=== PATIENT | male | born 1950 | race Caucasian/White ===

== ENCOUNTER → 2020-09-06 10:59 | Outpatient (CLI) | payer MEDICARE, OTHER, SELFPAY ==
--- NOTE | 2020-09-06 11:03 | DI.MRI.S_ITS ---
PROCEDURE: MR KNEE RT WO CON INDICATIONS: Pain in right knee TECHNIQUE: Noncontrast sagittal PD fast spin echo and T2 fast spin echo with fat saturation, sagittal 3-D FLASH with fat saturation; coronal T1 spin echo and PD fast spin echo with fat saturation, and axial PD fast spin echo with fat saturation through the knee. COMPARISON: [facility], MR, MR KNEE RIGHT WITHOUT CONTRAST, 12/14/2016, 10:20. [facility] [place], CR, XR KNEE 4+ VIEWS RIGHT, 08/28/2020, 15:08. FINDINGS: Image quality: There is mild motion artifact. Menisci: There is blunting in the posterior horn of the medial meniscus suggestive of prior partial meniscectomy. There is degenerative signal within the remnant posterior horn and body with mild degenerative tearing extending to the free edge and inferior articular surface. There is also partial tearing of the posterior meniscal root ligament without rupture. There is slight peripheral extrusion of the medial meniscus. The lateral meniscus appears intact. Cruciate ligaments: The anterior cruciate ligament is thickened and intermediate in signal consistent with chronic myxoid degeneration or sequelae of a moderate sprain. The posterior cruciate ligament is intact. Medial structures: The medial collateral ligament appears intact. The semimembranosus tendon insertions and meniscocapsular junction appear intact. Visualized portions of the pes anserinus tendons appear intact without associated bursal fluid collections. Lateral structures: The lateral collateral ligament, long and short heads of the biceps femoris tendon appear intact. The popliteus tendon demonstrates mild tendinopathy proximally. Iliotibial band appears normal. Anterior structures: The quadriceps tendon appears intact. There is mild tendinopathy and mild intrasubstance partial tearing in the proximal patellar tendon. Patellar alignment is normal. No femoral trochlear dysplasia or ventral trochlear prominence. There is mild scarring in the infrapatellar fat pad. Bones and cartilage: There is a small region of bone marrow edema anteriorly within the proximal tibia adjacent to the insertion of the ACL. No fractures identified. There is tricompartmental osteophytosis. Moderate cartilage thinning is present within the medial compartment with chondral fissuring and associated subchondral edema along the medial femoral condyle and medial tibial plateau. In the lateral compartment, there is mild cartilage thinning with superficial chondral fissuring. There is osteophytosis along the articular surface of the lateral femoral condyle. In the patellofemoral compartment, there is moderate cartilage thinning with chondral fissuring associated with subchondral edema most prominent along the lateral trochlea. Joint space: There is a minimal joint effusion. No Brown's cyst. Normal appearing synovial plicae are incidentally noted. IMPRESSION: 1. Blunting of the posterior horn of the medial meniscus suggestive of prior partial meniscectomy. Mild degenerative tearing is demonstrated within the remnant posterior horn and body as described. Partial tearing also demonstrated in the posterior meniscal root ligament without rupture. 2. Tricompartmental osteoarthritic changes, with chondral fissuring and subchondral edema demonstrated in the medial and patellofemoral compartments. 3. Thickening and intermediate signal demonstrated within the ACL consistent with sequelae of a moderate sprain or chronic myxoid degeneration. 4. Small region of bone marrow edema in the anterior tibia adjacent to the ACL insertion suggestive of intraosseous ganglion cyst formation, reactive changes, or a bone contusion. No fractures identified. Dictated by: Epifanio Haji M.D. on 09/08/2020 at 11:14 Approved by: Epifanio Haji M.D. on 09/08/2020 at 11:38
== END ==
PROVIDERS: PCP Physician Assistant Medical; Referring Provider Orthopaedic Surgery; Visit Provider Orthopaedic Surgery
DX: M25.561 Pain in right knee (principal); M23.221 Derangement of posterior horn of medial meniscus due to old tear or injury, right knee
CPT/HCPCS: 73721

== ENCOUNTER → 2020-10-24 10:19 | Outpatient (CLI) | payer MEDICARE, OTHER, SELFPAY ==
[2020-10-24 10:29] LABS: Bacteria Urine None Seen; WBC Urine None Seen (0-5/HPF)
[2020-10-24 12:09] LABS: Appearance Urine UA CLEAR; Bilirubin Urine UA NEGATIVE (NEGATIVE); Color Urine UA YELLOW; Glucose Urine UA NEGATIVE (Negative); Ketones Urine UA NEGATIVE (NEGATIVE); Leukocyte Esterase Urine UA NEGATIVE (NEGATIVE); Nitrite Urine UA NEGATIVE (Negative); Occult Blood Urine UA 1+ (Negative); Protein Urine UA NEGATIVE (Negative); Urobilinogen Urine UA 0.2 E.U./dL (0.2); pH Urine UA 5.5 (4.5-8.0)
[2020-10-24 12:12] LABS: Add Manual Diff / Slide Review NO; Basophils Absolute Auto 0 /uL (0-100); Basophils Percent Auto 0.8 % (0-2); Eosinophils Absolute Auto 300 /uL (0-450); Eosinophils Percent Auto 5.9 % (2-4); Hematocrit 44.9 % (41-53); Lymphocytes Absolute Auto 1400 /uL (1100-4500); Mean Corpuscular HGB Conc 33.4 % (30-36); Mean Corpuscular Hemoglobin 30.4 PG (26-34); Mean Corpuscular Volume 91.2 fL (80-100); Monocytes Absolute Auto 600 /uL (0-900); Monocytes Percent Auto 11.6 % (3-14); Neutrophils Absolute Auto 2900 /uL (1500-7000); Neutrophils Percent Auto 55.7 % (50-75); Platelet Count 207 X10^3/uL (150-400); Red Blood Cell Count 4.92 X10^6/uL (4.5-5.9); Red Cell Distribution Width 14.8 % (11.6-14.8); White Blood Cell Count 5.2 X10^3/uL (4.5-11.0)
[2020-10-24 12:22] LABS: Culture Indicated Urine Cult Not Indicated; RBC Urine 0-1/HPF (0-5/HPF)
[2020-10-24 12:32] LABS: BUN Creatinine Ratio 13.9 (6-22); Blood Urea Nitrogen 15 mg/dL (9-20); Calcium 9.4 mg/dL (8.4-10.2); Carbon Dioxide 27 mmol/L (22-32); Chloride 105 mmol/L (98-107); Estimated Glomerular Filt Rate > 60.0 mL/min (>60); Glucose 107 mg/dL (80-110); HEMOLYSIS < 15 (0-50); Potassium 4.3 mmol/L (3.4-5.1); Sodium 138 mmol/L (137-145)
[2020-10-24 14:29] LABS: Hemoglobin A1C% w Est Avg Glu 5.8 % (4.0-6.0)
== END ==
PROVIDERS: PCP Physician Assistant Medical; Referring Provider Orthopaedic Surgery; Visit Provider Orthopaedic Surgery
DX: Z01.818 Encounter for other preprocedural examination (principal); R73.9 Hyperglycemia, unspecified; M25.561 Pain in right knee; Z01.812 Encounter for preprocedural laboratory examination; N39.0 Urinary tract infection, site not specified
CPT/HCPCS: 36415; 80048; 81001; 83036; 85025; 93005

== ENCOUNTER → 2020-12-29 11:08 | Outpatient (CLI) | payer MEDICARE, OTHER, SELFPAY ==
[2020-12-29 17:20] LABS: COVID19 -Nasal RAPID Negative (Negative)
== END ==
PROVIDERS: PCP Physician Assistant Medical; Visit Provider Nurse Practitioner Family
DX: Z01.812 Encounter for preprocedural laboratory examination (principal); Z20.822 Contact with and (suspected) exposure to COVID-19
CPT/HCPCS: 87635

== ENCOUNTER 2020-12-31 17:11 | Observation (INO) | payer MEDICARE, OTHER, SELFPAY ==
[2020-12-19 07:47] VITALS: BMI 36.1
[2020-12-30] VITALS (13 sets, daily range): BP systolic 102–146; BP diastolic 44–92; PULSE 52–78; RESP 12–112; TEMP 35.8–37.1; O2SAT 94–99; BMI 36.1
[2020-12-30] MEDS: PREGABALIN 75 MG CAPSULE PO (12:35)
[2020-12-30] MEDS: CELECOXIB 200 MG CAPSULE PO (12:35)
[2020-12-30] MEDS: ACETAMINOPHEN 325 MG TABLET 975 MG PO (12:35)
[2020-12-30] MEDS: LACTATED RINGERS 1,000 ML 42 ML IV ×2 (12:36→16:05)
[2020-12-30] MEDS: VANCOMYCIN 1,000 MG/200 ML PIGGYBACK 200 MG IV (13:49)
--- NOTE | 2020-12-30 14:00 | DI.RAD.S_ITS ---
PROCEDURE: XR KNEE RT 1TO2V INDICATIONS: RT TOTAL KNEE TECHNIQUE: 2 view(s) of the knee acquired. COMPARISON: [facility] [place], [place], XR KNEE 4+ VIEWS RIGHT, 08/28/2020, 15:08. FINDINGS: Bones: Patient is status post knee joint arthroplasty. Hardware components are in expected positions. Visualized bony structures are intact. Soft tissues: Overlying postoperative changes are noted. Joint effusion. IMPRESSION: Satisfactory appearance of the right knee arthroplasty. Dictated by: Jorje Bowman M.D. on 12/31/2020 at 8:49 Approved by: Jorje Bowman M.D. on 12/31/2020 at 8:49
--- NOTE | 2020-12-30 14:39 | P.OP_ITS ---
Operative Date/Time/Diagnoses Date of procedure: 12/30/20 Time of procedure: 15:00 Pre-op diagnosis: Right knee osteoarthritis Post-op diagnosis: same Procedure & Clinicians Procedure: Right total knee arthroplasty Same procedure as scheduled: Yes Indications: The patient has had progressively worsening right knee pain with radiographic changes consistent with arthritis. Non-operative management has failed and the patient has requested total knee replacement. The risks, benefits and alternatives to surgery were discussed with the patient prior to proceeding. Risks discussed included, but were not limited to, failure to relieve pain, stiffness, infection, nerve damage, deep venous thrombosis, pulmonary embolism, stroke, coma, heart attack, permanent paralysis and , as well as the potential need for eventual revision of the prosthetic. Surgeon: Becca Kennedy Packing Room Worker: Esme Mora Anesthesia Type: General and Spinal Operative Notes Findings: Severe right knee osteoarthritis, good stability Closure Type: primary Specimen(s): none sent Prosthetic devices, grafts, tissues, transplants, or devices: Kennedy and nephew Journey BCS 2 size 5 femur, size 5 tibia, +9 poly, patella 38mm Applied: drain(s) Estimated Blood Loss (mL): 250 Blood products transfused: none Procedure in detail: The patient was seen in the pre-operative area, where the patient identified the right knee as the operative site and this was marked with my initials. The patient received pre-operative antibiotics, and was taken to the operating room and placed on the operative table in the supine position. After satisfactory anesthesia, a timers inspector out was performed. The right leg was encircled with a tourniquet about the proximal thigh, and the leg was prepared from the toes to the tourniquet with ChloroPrep in the usual fashion and draped through sterile drapes. The leg was elevated and exsanguinated with Eschmark bandage and the tourniquet inflated to [250] mmHg pressure. The knee was approached through an approximately 18 cm incision centered over the patella and carried into the knee through a medial parapatellar arthrotomy. A portion of the medial and lateral meniscus was resected. Soft tissue was carefully mobilized around the patella the patella was measured with a caliper. Bone was resected from the patella and the patellar height was reconstituted with up an appropriate sized patellar component. A cover was then placed on the patella. A small amount of additional medial and lateral meniscus was resected. The visionare guide fit well to the distal femur. It looked like an appropriate distal femoral cut and the cut was made without difficulty. The rotation was assessed and the appropriate size femoral guide was placed on the distal femur and finishing cuts were made. There was no evidence of notching. The anterior, posterior and chamfer cuts were then made. The posterior osteophytes and soft tissues were then removed. The posterior capsule was injected with part of a mixture of 60 ml 0.25% Marcaine mixed with 20 ml Exparel for post operative pain control. The remainder of this mixture was injected into the capsule and subcutaneous tissues during cement curing. The tibia was prepared and the visionaire guide fit well to the distal tibia. The rotation was assessed. The patient was placed in extension residual medial and lateral meniscus as well as any residual bone was carefully resected. [No] additional tibia was resected. Hemostasis was achieved especially posteriorly. Additional local was injected into the posterior capsule. The extension gap was assessed and additional releases for gap balancing were performed as necessary. It was checked with the gap fisheries technician. The femoral component was trial was placed and the notch was finished. Trial tibial and femoral components were then placed and the knee placed through a range of motion. Range of motion was [0-130], with good stability throughout the range. The trials were then removed, and the tibia was finished. The bone was prepared with pulsatile lavage, and dried with a sponge. Cement was applied and the final prosthetics placed. Excess cement was removed during and after cement curing. A brief Betadine soak was performed. After confirming there was no extruded cement posteriorly, the final tibial insert was placed. The knee was copiously irrigated and the tourniquet deflated. Hemostasis was obtained with the [Aquamantys system]. A drain was placed and brought out superolaterally. The capsule was closed with interrupted Vicryl suture. The subcutaneous layer was closed with barbed sutures, and the skin with a running 3-0 V-Lock suture and Surgical glue. An Aquacel Ag dressing was applied and the patient was taken to recovery having tolerated the procedure well. Complications: none Post-operative Condition: stable Disposition: Acute Care Plan for aftercare: The patient will be maintained on a standard total knee replacement protocol with weight bearing as tolerated. The patient will receive aspirin and sequential compression devices for DVT prophylaxis. The patient will be discharged home when safe for the home environment.
--- NOTE | 2020-12-30 14:39 | PM.PREOP ---
Pre-operative Note COVID-19 COVID-19 status: Negative Interval Note History & Physical reviewed/Exam performed by Physician: Yes Changes to H&P: No
[2020-12-30] MEDS: CEFAZOLIN 1 GM VIAL 2 GM IV ×2 (15:09→22:29)
--- NOTE | 2020-12-30 15:34 | SUR.OPER ---
Supine on padded OR bed. Pillow under head, arms secured on padded armboards <90 degree abduction. Safety belt across torso. Non-operative leg secured with tape over blanket over lower leg. Operative leg secured in DeMayo/Brennan/Nathe positioner. Foam padded brace at thigh of operative leg.
[2020-12-30] MEDS: BUPIVACAINE 0.25% (PF) VIAL 30 ML INJ (15:39)
[2020-12-30] MEDS: EPINEPHrine 1 MG/ML 0.15 MG INJ (15:40)
[2020-12-30] MEDS: BUPIVACAINE LIPOSOME 266 MG/20 ML VIAL INJ (15:42)
[2020-12-30] MEDS: TRANEXAMIC ACID 1,000 MG VIAL 2000 MG INJ (16:32)
[2020-12-30] MEDS: ONDANSETRON 4 MG/2 ML INJ IV ×2 (17:25→20:52)
[2020-12-30] MEDS: LACTATED RINGERS 1,000 ML 100 ML IV (19:17)
[2020-12-30] MEDS: ACETAMINOPHEN 325 MG TABLET 650 MG PO (20:45)
[2020-12-30] MEDS: ASPIRIN EC 81 MG TABLET PO (20:45)
[2020-12-30] MEDS: DOCUSATE 100 MG CAPSULE PO (20:45)
[2020-12-30] MEDS: FAMOTIDINE 20 MG TABLET PO (20:45)
[2020-12-30] MEDS: IBUPROFEN 400 MG TABLET PO (20:45)
[2020-12-30] MEDS: ATORVASTATIN 20 MG TABLET 10 MG PO (20:46)
[2020-12-31] MEDS: NALOXONE 0.4 MG/ML VIAL 0.1 MG IV ×2 (00:46→04:50)
[2020-12-31 04:46] VITALS: BP 124/92; PULSE 78; RESP 16; TEMP 36.5; O2SAT 97
[2020-12-31] MEDS: LACTATED RINGERS 1,000 ML 100 ML IV (04:50)
[2020-12-31] MEDS: IBUPROFEN 400 MG TABLET PO ×4 (06:23→19:53)
[2020-12-31] MEDS: CEFAZOLIN 1 GM VIAL 2 GM IV (06:23)
[2020-12-31 06:38] LABS: Hematocrit 39.8 % (41-53); Hemoglobin 13.5 g/dL (13.5-17.5)
[2020-12-31 08:37] VITALS: BP 121/72; PULSE 66; RESP 16; TEMP 37.1; O2SAT 96
[2020-12-31 08:44] VITALS: BP 121/72; PULSE 66
[2020-12-31] MEDS: PROCHLORPERAZINE 25 MG SUPP PR (08:44)
--- NOTE | 2020-12-31 08:57 | P.DS_ITS ---
History of Present Illness History of Present Illness Date Patient Seen: 12/31/20 Time Patient Seen: 08:58 Chief complaint: Right knee pain s/p R TKA, severe postop nausea Narrative: The patient is complaining of mild right knee pain after his right total knee arthroplasty yesterday. His main concern is his severe postop nausea and vomiting. He is vomiting even with very small sips of water. He denies numbness, tingling. No fevers, chills, night sweats. He is optimistic and is hoping to go home today. Of note, he is also not voided on his own yet. Discharge Providers Provider Date of admission: 12/30/20 11:44 Discharge Date: 12/31/20 Primary care physician: Kelly Luque PA-C Consults: 12/30/20 11:37 Consult to Anesthesiology Routine Comment: Consulting Provider: Anesthesiologist Reason for consultation: Regional block for post operative pain control 12/30/20 18:28 Consult to Discharge Planning Routine Comment: Consult to Physical Therapy Evaluate & Treat Comment: Physician Instructions: postop TKA protocol Consult to Respiratory Therapy Evaluate & Treat Comment: Physician Instructions: Evaluate and treat Discharge provider: Esme Mora PA-C Summary Hospital Course Discharge Diagnosis: Right knee osteoarthritis -moderate to severe postop nausea and vomiting Hospital Course: Procedure: Right total knee arthroplasty Same procedure as scheduled: Yes Indications: The patient has had progressively worsening right knee pain with radiographic changes consistent with arthritis. Non-operative management has failed and the patient has requested total knee replacement. The risks, benefits and alternatives to surgery were discussed with the patient prior to proceeding. Risks discussed included, but were not limited to, failure to relieve pain, stiffness, infection, nerve damage, deep venous thrombosis, pulmonary embolism, stroke, coma, heart attack, permanent paralysis and , as well as the potential need for eventual revision of the prosthetic. Surgeon: Becca Kennedy Building Construction Superintendent: Esme Mora Anesthesia Type: General and Spinal Operative Notes Findings: Severe right knee osteoarthritis, good stability Closure Type: primary Specimen(s): none sent Prosthetic devices, grafts, tissues, transplants, or devices: Kennedy and nephew Journey BCS 2 size 5 femur, size 5 tibia, +9 poly, patella 38mm Applied: drain(s) Estimated Blood Loss (mL): 250 Blood products transfused: none The patient experienced rather severe postop nausea and vomiting. He has also been unable to void on his own yet. Status at Discharge Cognitive/behavioral status at discharge: oriented Functional status at discharge: uses cane/walker Overall status at discharge: patient is progressing back to baseline Exam Vital Signs (past 8 hours): - 12/31/20 04:46 12/31/20 08:44 Temperature 97.7 F Pulse Rate 78 66 Respiratory Rate 16 Blood Pressure 124/92 H 121/72 Pulse Oximetry 97 Oxygen Delivery Method Room Air Oxygen Flow Rate 0 Narrative Exam Narrative: Pleasant 70-year-old male, resting comfortably in bed, no acute distress. His is at his bedside. Bilateral lower extremity functions m otor functions are intact. Sensation is intact to light touch in bilateral lower extremities. Bilateral calves are soft, nontender to palpation. Incision is clean, dry, intact. Objective Labs Result Diagrams: 12/31/20 06:30 Labs: Laboratory Results - last 24 hr 12/31/20 06:30 Hgb 13.5 Hct 39.8 L PFSH Medical History Abdominal aortic aneurysm (AAA) Arthritis Chronic back pain GERD (gastroesophageal reflux disease) History of biliary stent insertion HLD (hyperlipidemia) Iliac artery aneurysm, bilateral (01/2018) Kidney stone Surgical History History of cardiac cath History of surgery (1993) History of vasectomy (~1982) Hx of arthroscopy of right knee (2016) Hx of colonoscopy (09/2020) S/P foot surgery, left (1993) Social History household members: spouse Smoking Status: Never smoker alcohol intake: current Discharge Assessment & Plan Assessment and Plan Assessment: Progressing status post right total knee arthroplasty -severe postop nausea and vomiting Plan of Treatment: -mobilize with PT. Weightbearing as tolerated with front wheel walker -pull drain -continue with pain regimen -add Compazine rectal suppositories for severe postop nausea and vomiting -monitor patient for voiding. He needs to be able to void on his own before being discharged -possible DC home today if nausea is resolving and patient is able to void on his own, and cleared by PT. Discharge Plan Discharge Plan Patient Disposition: Home Discharge orders & Medications Prescriptions: New acetaminophen 500 mg capsule 500 mg PO Q4H MDD Max 6 tabs per day PRN (Reason: Pain) Qty: 90 RF: 0 aspirin 81 mg Tablet,Delayed Release (Dr/Ec) 81 mg PO BID PRN (Reason: X6 weeks to prevent blood clots) Qty: 90 RF: 0 docusate sodium 100 mg Capsule 100 mg PO BID PRN (Reason: Constipation from the narcotic pain meds) Qty: 20 RF: 0 ibuprofen 400 mg Tablet 400 mg PO Q4HR MDD Max 2400 mg per day PRN (Reason: Pain/inflammation) Qty: 90 RF: 0 oxycodone 5 mg Tablet 5 mg PO Q4H PRN (Reason: Pain, Moderate (4-6)) Qty: 42 RF: 0 prochlorperazine 25 mg Suppository 25 mg ND Q6HR PRN (Reason: Nausea) Qty: 10 RF: 0 ondansetron 4 mg Tablet,Disintegrating 4 mg PO Q4HR PRN (Reason: Nausea) Qty: 14 RF: 0 Continued famotidine 20 mg Tablet 20 mg PO BEDTIME RF: 0 simvastatin 20 mg Tablet 20 mg PO BEDTIME RF: 0 Discontinued aspirin [Aspirin Low-Strength] 81 mg Tablet,Delayed Release (Dr/Ec) 81 mg PO DAILY RF: 0 Follow up/Referrals: Becca Kennedy MD [Physician] - (10-14 days for postoperative visit) Kelly Luque PA-C [Primary Care Provider] - Diet/Activity/Treatments Diet: Diet as Tolerated and Regular Activity: -weightbearing as tolerated with front wheel walker -continue home exercises as directed by Physical therapy -elevate toes above the nose as needed for swelling Cold/Heat Therapy: -use ice as needed for pain Other treatments: -aspirin 81 mg twice daily x6 weeks to prevent blood clots -Tylenol 500 mg and ibuprofen 400 mg every 4 hours as needed for pain -add oxycodone 5 mg as needed for moderate to severe pain. Use OTC constipation meds as needed with this medication -use Compazine rectal suppositories as needed for severe nausea -use Zofran, (dissolves under tongue) as needed for [id number] nausea Skin/Wound/Dressing Care Report to your healthcare provider any signs of infection, such as:: chills, fever, night sweats, unusual drainage and unusual redness Dressing: -okay to remove the Santana wrap after 48 hours, then you may shower -keep waterproof dressing in place until next visit -call the office if dressing becomes wet, soiled, saturated Visit Report/Discharge Packet Instructions: DI for Knee Replacement, DI for Prescription Opioid Use Stand Alone Forms: Surgery Discharge Discharge Data Primary Care Provider: Kelly Luque VTE Deep Vein Thrombosis/Pulmonary Embolism Present on Admission: No
[2020-12-31] MEDS: ONDANSETRON 4 MG ODT PO ×3 (09:09→18:39)
--- NOTE | 2020-12-31 10:20 | PT.IIE ---
Current Diagnoses Unilateral primary osteoarthritis, right knee (12/30/20) Surgery Performed Operation Date: 12/30/20 13:45 Actual Procedures p Total Knee Arthroplasty(Right) - Becca Kennedy MD Medical History (Last Reviewed 12/31/20 @ 09:01 by Esme Mora PA-C) Abdominal aortic aneurysm (AAA) Arthritis Chronic back pain GERD (gastroesophageal reflux disease) History of biliary stent insertion HLD (hyperlipidemia) Iliac artery aneurysm, bilateral (01/2018) Kidney stone Physical Therapy Inpatient Evaluation/Re-Eval M1 PT/OT-IP Prior Functional Status Start: 12/31/20 12:51 Freq: NEEDED Status: Active Protocol: Document 12/31/20 10:20 AB (Rec: 12/31/20 13:02 AB [id number]) Medical Review Prior Functional Status Medical History Reviewed Yes Communication able to make needs known Mobility and Gait pt stated that he is independent with all mobilities and ambulation without AD; uses 2 hiking pole only when walking out into the [place] Social History Household Members spouse Living Arrangements House Number of Floors (Floors) Two Floors Number of Stairs To Enter/Railing? pt will stay on first level of the house 1 step to enter the house Home Environment Standard Height Toilet,Walk in Shower Home Equipment Front Wheel Walker,Raised Toilet Seat w/Armrests,Shower Seat without Backrest,Hand Held Shower M2 PT-IP Current Condition Start: 12/31/20 12:51 Freq: NEEDED Status: Active Protocol: Document 12/31/20 10:20 AB (Rec: 12/31/20 13:02 AB [email or web address]) Physical Therapy Current Condition Current Condition Evaluation Date 12/31/20 Treatment Diagnosis s/p R TKA; difficulty in walking Onset Date 12/30/20 Weight Bearing Status Weight Bearing Status Weight Bear as Tolerated Allowed Weight Bearing Amount (enter % RLE WBAT or #) (%) M3 PT-IP Subjective Start: 12/31/20 12:51 Freq: NEEDED Status: Active Protocol: Document 12/31/20 10:20 AB (Rec: 12/31/20 13:02 AB [email or web address]) Subjective Physical Therapy Visit Type Type Initial Evaluation Visit Start Time 10:20 Visit Stop Time 11:07 Total Visit Minutes 47 Number of NETWORK DESKTOP SUPPORT SPECIALIST Visits 0 Physical Therapy Visit Comments Patient Comments pt is agreeable to do PT; c/o nausea Therapy Pain Assessment Pain When Pain Assessed At Rest Pain Present Pain Present Pain Reported Location Right Knee Intensity 3 Scale Used Numeric (0 - 10) Pain Behaviors Guarding Pain Management Techniques Apply Cold,Elevation, Modification of Treatment,Re- positioning,Timing of Activity with Medications M4 PT-IP Mobility and Gait Start: 12/31/20 12:51 Freq: NEEDED Status: Active Protocol: Document 12/31/20 10:20 AB (Rec: 12/31/20 13:02 AB [id number]) PT-Bed Mobility Assessment Supine to Sit Supine to Sit Standby Assistance PT-Transfer Assessment Sit to and From Stand Sit to and from Stand Minimal Assistance,1 Person Assistance,Use of Upper Extremities Equipment Transfer Assistive Device Gait Belt,Front Wheeled Walker Orthotic/Prosthetic Devices or Brace: No Transfers Transfer Destination Chair Transfer Technique ambulated using FWW Transfer Ability Level of Assist Minimal Assistance,1 Person Assistance,Use of Upper Extremities Comments Mobility Comments pt c/o nausea. BP in supine: 113/74. completed supine to sit SBA. pt was able to sit on EOB SBA. c/o increase nausea and slight dizziness. BP: 118/78. completed sit to stand min a and cues and ambulated in room using FWW min A ~ 20 ft. c/o dizziness. instructed to sit down on chair. BP checked: 96/62. nurse informed. pt agreed to stay up on chair. positioned on chair. call light and table placed within reach. pt and spouse and a lot of questions regarding HEP, progression of activities and mobility. pt and spouse educated on all issues and safety. Gait Assessment Gait Gait Assistance Required: Minimum Assistance Distance (Feet) 20 Able to Maintain Weight Bearing Status Yes During Gait Assistive Devices Assistive Device Gait Belt,Front Wheeled Walker Orthotic/Prosthetic Devices or Brace: No Gait Deviations General Gait Pattern Antalgic,Decreased Stride Length,Decreased Feet Clearance Factors Limiting Gait Function Factors Limiting Gait Function Decreased Activity Tolerance, Decreased Strength,Difficulty Following Directions,Limited Range of Motion,Pain,Poor Balance,Poor Safety Awareness PT-Balance Assessment Sitting Balance and Reactions Static Sitting Balance Ability Good Dynamic Sitting Balance Ability Good Standing Balance and Reactions Static Standing Balance Ability Fair Dynamic Standing Balance Ability Fair Device Used FWW M5 PT-IP Objective Assessments Start: 12/31/20 12:51 Freq: NEEDED Status: Active Protocol: Document 12/31/20 10:20 AB (Rec: 12/31/20 13:02 [email or web address]) Orientation Orientation/Cognition Level of Alertness Alert Orientation Name,Place,Situation Safety Awareness Decreased Safety Awareness Gross Range of Motion Lower Extremity ROM Assessment Right Impaired Impairments R knee flexion: ~ 70 deg PROM Strength Lower Extremity Strength Assessment Right Impaired Hip 4-/5 Knee 3+/5 Sensation Assessment Sensation Gross Sensation WNL Muscle Tone Muscle Tone WNL Yes M6 PT-IP Treatment Start: 12/31/20 12:51 Freq: NEEDED Status: Active Protocol: Document 12/31/20 10:20 AB (Rec: 12/31/20 13:02 AB [id number]) Physical Therapy Treatment Education Education Provided Precautions,Weight Bearing Status,Post-Op Packet,Safety M7 PT-IP Assessment and Plan Start: 12/31/20 12:51 Freq: NEEDED Status: Active Protocol: Document 12/31/20 10:20 AB (Rec: 12/31/20 13:02 [email or web address]) PT Summary Assessment and Plan Potential Rehabilitation Potential Good Status of Condition at Evaluation Evolving Summary Impairments Pain,ROM,Strength,Balance, Coordination,Sensation,Tone, Cognition,Bed Mobility, Transfers,Gait,Activity Tolerance Assessment Summary pt requiring min A with transfers/ambulation using FWW but was not able to tolerate much activity with c/o nausea and lightheadedness. will continue to assess progress and will conduct caregiver training when appropriate as well as stair climbing training. Goals Bed Mobility Goal Standby Assistance Transfer Goal Standby Assistance,Front Wheeled Walker Gait Goal Standby Assistance,Front Wheel Walker Gait Distance 200 Other Goals up/down 1 step using FWW SBA Days to Meet Goals 5 Frequency of Treatment Frequency Of Treatment Twice a Day Treatment Plan Physical Therapy Treatment Plan Bed Mobility Training,Transfer Training,Gait Training, Therapeutic Exercise,Balance Retraining,Post Op Education, Discharge Planning,Hot or Cold Pack,Neuromuscular Re-ed, Coordination Retraining,Manual Therapy Precautions Other Precautions RLE WBAT Recommendations To Nursing Amount of Assist Needed 1 Person Assist Discharge Recommendations PT Discharge Recommendations Home with Assistance, Outpatient PT Transportation Needs at Discharge Private Vehicle
[2020-12-31 11:51] VITALS: BP 114/69; PULSE 73; RESP 16; TEMP 36.1; O2SAT 98
--- NOTE | 2020-12-31 12:14 | CM.DPC ---
DCP/Assessment: Reviewed chart. Patient is a 70yr old male admitted to [facility] for right TKA performed on 12-30-20. PCP is Kelly Luque. Primary payor 1)Medicare 2) for Life. Met with patient and spouse/Rosemary at bedside explained role. Patient reports that he plans to d/c home when stable. Patient has all needed DME and plans to do outpatient therapy at [facility]. Patient scheduled to be seen by therapy twice today. Patient hopes to d/c home later today. P: Home when medically stable. DEONNA Discharge Planning/Care Management CM Discharge Assessment Start: 12/31/20 12:10 Freq: Status: Active Protocol: Document 12/31/20 12:10 DEONNA (Rec: 12/31/20 12:14 [facility] [id number]) Discharge Planning Assessment Assigned Photonic Laboratory Technician KISHA Chen Contact Information Rosemary Gillette (spouse) # [phone] Advance Directives? Yes Advance Directives on File No History Provided By Patient,Medical Record Prior Living Arrangements House Household Members spouse Type of transporation used prior to Drives own vehicle admit Independent with ADL's Yes Is patient alert and oriented? Yes Caregiver for Another No Patient/Family Preference OP PT Therapy Barriers to Discharge No Discharge Plan Home Transportation Arrangement Family to provide transport. Whiteboard Updated in Patient Room with Yes name and ext. # of Photonic Laboratory Technician Review Status In Process Next Review Type Continued Stay Review Pre-Anesthesia Assessment Start: 12/19/20 07:47 Freq: Status: Complete Protocol: Document 12/19/20 07:47 CAB (Rec: 12/19/20 09:43 CAB [id number]) Pre-Anesthesia Assessment Preferred Name Deniz Patient Information Reviewed Via Phone Assessment Assessment Completed With Patient H&P Completed Within 30 Days Yes Diagnostic Results BMP/CMP,CBC,EKG,Urinalysis Comment Labs/EKG @ [facility] 10/24/20, COVID screen @ 12/29/20 Primary Care Provider Kelly Luque Seen Specialist in Last 12 Months Yes Specialist Seen Fan Engine Engineer,Orthopedist,Other Comment Vascular surgeon, GI Primary Language [employer] Required No Height 167.64 cm Weight 101.605 kg Body Mass Index (BMI) 36.1 Hearing Ability Normal Visual Assist Glasses Dentition Type Teeth, Natural Present,Teeth, Missing Barriers to Learning None Hx Anesthesia Reactions Yes: Vomiting during surgery ' 84 Hx Family Anesthesia Reaction No Hx Malignant Hyperthermia No Hx Blood Transfusions No Anesthesia Review Requested No alcohol intake current alcohol intake frequency a few times a month Smoking Status Never smoker Substance Use Type does not use Pain Present Pain Reported Musculoskeletal Symptoms Abnormal Gait,Back Pain, Difficulty Walking,Joint Pain History of Falling (Recent or History of Yes ) Patient is completely paralyzed or No completely immobile Mental Status Oriented to own ability Is patient on oxygen? No Does patient have CABALLERO/SOB No Hx Sleep Apnea No Currently Taking a Beta Daphney No Hx Chest Pain No Hx SOB No Hx Syncope or Dizziness No Anti-Coagulant Therapy Yes: 81mg ASA-will continue through surgery per Dr. Kennedy, Dr. Melendez Has a Fan Engine Engineer Yes: Asad Lyle- [facility] Cardiac Testing Yes: Aorta iliac duplex 04/29/20 Hx Pacemaker/ICD No Pacemaker Rep Required? No Cardiac Clearance Received Not Applicable Comment Cardiothoracic visit 05/15/19, Vascular visit 04/29/20 scanned Diet Type At Home Regular dysphagia No Gastrointestinal Symptoms Reflux Urinary Catheter Present No Hx Urinary Self Catheterization No Diabetes No Hx Drug Resistant Organism No Presence of External or Internal Medical Yes: Bilat iliac stents Devices Have you had any close contact with No someone diagnosed with COVID-19? Marital Status Lives With spouse Prior Living Arrangements House Number of Floors (Floors) Two Floors Support System Spouse Does the Patient Have Assistance After Yes Surgery Patient Discharge Plan Description Return Home Comment Pt advised 1 day length of stay per surgeon Feels Safe in Current Environment Yes Been Physically Hurt or Threatened By a No Person in Current Environment Do you have thoughts of harming yourself None or others? Are you currently considering suicide? No Do you have a plan to hurt yourself or No Plan others? Do You Have Any Spiritual Beliefs That No May Affect Your HC Choices? Do You Have Any Cultural Practices That No May Affect Your HC Choices? Comment Voodoo Who Can We Speak to About Patient's Care Family, friends Identifying Code for Release of Patient Declines to issue Information Health Care Proxy/Next of Kin Rosemary () Health Care Proxy Emergency Contact Name Rosemary () Emergency Contact Advance Directives? Yes Advance Directives on File No Requested Patient Bring Advanced Yes Directives DOS Power of Tooth Cutter Contact Wheel Yes Power of Tooth Cutter Contact Wheel Name Rosemary () Power of Tooth Cutter Contact Wheel PAC Instructions Durable medical equipment, Medications to take/avoid, Nasal antibiotic,No ETOH/ petroleum product on skin DOS, NPO,Post-op transportation,Pre -surgical wash,Sturdy shoes/ comfortable clothes,Do not bring valuables and remove jewelry
--- NOTE | 2020-12-31 13:00 | PT.IPTN ---
Current Diagnoses Unilateral primary osteoarthritis, right knee (12/30/20) Surgery Performed Operation Date: 12/30/20 13:45 Actual Procedures p Total Knee Arthroplasty(Right) - Becca Kennedy MD Physical Therapy Treatment Note M2 PT-IP Current Condition Start: 12/31/20 12:51 Freq: NEEDED Status: Active Protocol: Document 12/31/20 10:20 AB (Rec: 12/31/20 13:02 AB [id number]) Physical Therapy Current Condition Current Condition Evaluation Date 12/31/20 Treatment Diagnosis s/p R TKA; difficulty in walking Onset Date 12/30/20 Weight Bearing Status Weight Bearing Status Weight Bear as Tolerated Allowed Weight Bearing Amount (enter % RLE WBAT or #) (%) M3 PT-IP Subjective Start: 12/31/20 12:51 Freq: NEEDED Status: Active Protocol: Document 12/31/20 13:00 AB (Rec: 12/31/20 13:52 AB [id number]) Subjective Physical Therapy Visit Type Type Treatment Note Visit Start Time 13:00 Visit Stop Time 13:34 Total Visit Minutes 34 Number of PROPULSION GENERATOR REPAIRER Visits 0 Physical Therapy Visit Comments Patient Comments agreed to do PT M4 PT-IP Mobility and Gait Start: 12/31/20 12:51 Freq: NEEDED Status: Active Protocol: Document 12/31/20 13:00 AB (Rec: 12/31/20 13:52 AB [email or web address]) PT-Bed Mobility Assessment Sit to Supine Sit to Supine Standby Assistance PT-Transfer Assessment Sit to and From Stand Sit to and from Stand Contact Guard Assistance,1 Person Assistance,Use of Upper Extremities Equipment Transfer Assistive Device Gait Belt,Front Wheeled Walker Orthotic/Prosthetic Devices or Brace: No Transfers Transfer Destination Toilet Transfer Technique ambulated using FWW Transfer Ability Level of Assist Contact Guard Assistance,1 Person Assistance,Use of Upper Extremities Comments Mobility Comments pt sitting on chair. Nurse informed that pt has voiding issues and to assist pt to use the toilet. Pt agreed to try . completed sit to stand from chair CGA and ambulated to the toilet CGA. CGA with descent and pt used grab bar to assist. Pt completed sit to stand from the toilet CGA and ambulated in room using FWW ~ 75 ft using FWW CGA and occasional cues for safety and R quads activation. pt requested to go back to bed. completed sit to supine SBA. positioned on bed. call light and table placed within reach . Nurse in room with pt and informed regarding pt's mobility. BP: 118/68. Pt without c/o nausea or lightheadedness this afternoon but continues to have difficulty with voiding. spouse wants to be present during tomorrow's PT session and plans to be here tomorrow ~ 9 am. Gait Assessment Gait Gait Assistance Required: Contact Guard Assist Distance (Feet) 75 Able to Maintain Weight Bearing Status Yes During Gait Assistive Devices Assistive Device Gait Belt,Front Wheeled Walker Orthotic/Prosthetic Devices or Brace: No Gait Deviations General Gait Pattern Antalgic,Decreased Stride Length,Decreased Feet Clearance Factors Limiting Gait Function Factors Limiting Gait Function Decreased Activity Tolerance, Decreased Strength,Limited Range of Motion,Pain,Poor Balance,Poor Safety Awareness M5 PT-IP Objective Assessments Start: 12/31/20 12:51 Freq: NEEDED Status: Active Protocol: Document 12/31/20 10:20 AB (Rec: 12/31/20 13:02 AB [email or web address]) Orientation Orientation/Cognition Level of Alertness Alert Orientation Name,Place,Situation Safety Awareness Decreased Safety Awareness Gross Range of Motion Lower Extremity ROM Assessment Right Impaired Impairments R knee flexion: ~ 70 deg PROM Strength Lower Extremity Strength Assessment Right Impaired Hip 4-/5 Knee 3+/5 Sensation Assessment Sensation Gross Sensation WNL Muscle Tone Muscle Tone WNL Yes M6 PT-IP Treatment Start: 12/31/20 12:51 Freq: NEEDED Status: Active Protocol: Document 12/31/20 13:00 AB (Rec: 12/31/20 13:52 AB [email or web address]) Physical Therapy Treatment Education Education Provided Safety M7 PT-IP Assessment and Plan Start: 12/31/20 12:51 Freq: NEEDED Status: Active Protocol: Document 12/31/20 13:00 AB (Rec: 12/31/20 13:52 AB [email or web address]) PT Summary Assessment and Plan Potential Rehabilitation Potential Good Summary Impairments Pain,ROM,Strength,Balance, Coordination,Sensation,Tone, Cognition,Bed Mobility, Transfers,Gait,Activity Tolerance Progress Towards Goals Slow Progress due to Medical Issues Assessment Summary pt requiring CGA with mobility but has decrease activity tolerance affecting function. will conduct caregiver training when appropriate and will have to complete stair climbing prior to d/c. will continue to assess progress. Goals Bed Mobility Goal Standby Assistance Transfer Goal Standby Assistance,Front Wheeled Walker Gait Goal Standby Assistance,Front Wheel Walker Gait Distance 200 Other Goals up/down 1 step using FWW SBA Days to Meet Goals 5 Frequency of Treatment Frequency Of Treatment Twice a Day Treatment Plan Physical Therapy Treatment Plan Bed Mobility Training,Transfer Training,Gait Training, Therapeutic Exercise,Balance Retraining,Post Op Education, Discharge Planning,Hot or Cold Pack,Neuromuscular Re-ed, Coordination Retraining,Manual Therapy Precautions Other Precautions RLE WBAT Recommendations To Nursing Amount of Assist Needed 1 Person Assist Discharge Recommendations PT Discharge Recommendations Home with Assistance, Outpatient PT Transportation Needs at Discharge Private Vehicle
[2020-12-31] MEDS: ACETAMINOPHEN 325 MG TABLET 650 MG PO ×2 (13:50→19:54)
[2020-12-31] MEDS: BENZOCAINE/MENTHOL 1 LOZ PKT 1 EACH PO (13:50)
[2020-12-31] MEDS: TAMSULOSIN 0.4 MG CAPSULE PO (13:52)
[2020-12-31 15:15] VITALS: BP 123/77; PULSE 75; RESP 18; TEMP 37.8; O2SAT 98
[2020-12-31] MEDS: OXYCODONE IR 5 MG TABLET PO ×2 (17:13→22:41)
[2020-12-31] MEDS: FAMOTIDINE 20 MG TABLET PO (19:52)
[2020-12-31] MEDS: ATORVASTATIN 20 MG TABLET 10 MG PO (19:52)
[2020-12-31] MEDS: ASPIRIN EC 81 MG TABLET PO (19:53)
[2020-12-31] MEDS: DOCUSATE 100 MG CAPSULE PO (19:54)
[2020-12-31 20:05] VITALS: BP 98/62; PULSE 74; RESP 18; TEMP 37.1; O2SAT 96
[2021-01-01 01:32] VITALS: BP 131/57; PULSE 77; RESP 18; TEMP 36.4; O2SAT 95
[2021-01-01] MEDS: IBUPROFEN 400 MG TABLET PO ×3 (01:32→08:28)
[2021-01-01 05:00] VITALS: BP 102/51; PULSE 68; RESP 16; TEMP 36.9; O2SAT 93
[2021-01-01 07:38] VITALS: BP 114/72; PULSE 83; RESP 16; TEMP 36.4; O2SAT 96
[2021-01-01] MEDS: OXYCODONE IR 5 MG TABLET PO (08:26)
[2021-01-01] MEDS: ONDANSETRON 4 MG ODT PO (08:26)
[2021-01-01] MEDS: ACETAMINOPHEN 325 MG TABLET 650 MG PO (08:26)
[2021-01-01] MEDS: TAMSULOSIN 0.4 MG CAPSULE PO (08:26)
[2021-01-01] MEDS: ASPIRIN EC 81 MG TABLET PO (08:26)
[2021-01-01] MEDS: DOCUSATE 100 MG CAPSULE PO (08:28)
--- NOTE | 2021-01-01 09:21 | P.DS_ITS ---
History of Present Illness History of Present Illness Date Patient Seen: 01/01/21 Time Patient Seen: 09:21 Chief complaint: Right knee pain s/p R TKA, severe postop nausea Narrative: The patient is complaining of mild right knee pain after his right total knee arthroplasty. His severe postop nausea and vomiting has resolved. He denies numbness, tingling. No fevers, chills, night sweats. He is optimistic and is hoping to go home today. He is now able to void with the help of Flomax. Discharge Providers Provider Date of admission: 12/30/20 11:44 Discharge Date: 01/01/21 Primary care physician: Kelly Luque PA-C Consults: 12/30/20 11:37 Consult to Anesthesiology Routine Comment: Consulting Provider: Anesthesiologist Reason for consultation: Regional block for post operative pain control 12/30/20 18:28 Consult to Discharge Planning Routine Comment: Consult to Physical Therapy Evaluate & Treat Comment: Physician Instructions: postop TKA protocol Consult to Respiratory Therapy Evaluate & Treat Comment: Physician Instructions: Evaluate and treat Discharge provider: Esme Mora PA-C Summary Hospital Course Discharge Diagnosis: Right knee osteoarthritis Hospital Course: Procedure: Right total knee arthroplasty Same procedure as scheduled: Yes Indications: The patient has had progressively worsening right knee pain with radiographic changes consistent with arthritis. Non-operative management has failed and the patient has requested total knee replacement. The risks, benefits and alternatives to surgery were discussed with the patient prior to proceeding. Risks discussed included, but were not limited to, failure to relieve pain, stiffness, infection, nerve damage, deep venous thrombosis, pulmonary embolism, stroke, coma, heart attack, permanent paralysis and , as well as the potential need for eventual revision of the prosthetic. Surgeon: Becca Kennedy Physical Integration Practitioner: Esme Mora Anesthesia Type: General and Spinal Operative Notes Findings: Severe right knee osteoarthritis, good stability Closure Type: primary Specimen(s): none sent Prosthetic devices, grafts, tissues, transplants, or devices: Kennedy and nephew [employer] 2 size 5 femur, size 5 tibia, +9 poly, patella 38mm Applied: drain(s) Estimated Blood Loss (mL): 250 Blood products transfused: none The patient experienced severe postop nausea and vomiting. A Compazine rectal suppository helped resolve this. Status at Discharge Cognitive/behavioral status at discharge: oriented Functional status at discharge: uses cane/walker Overall status at discharge: patient is progressing back to baseline Exam Vital Signs (past 8 hours): - 01/01/21 01:32 01/01/21 05:00 Temperature 97.5 F L 98.5 F Pulse Rate 77 68 Respiratory Rate 18 16 Blood Pressure 131/57 L 102/51 L Pulse Oximetry 95 93 Oxygen Delivery Method Room Air Oxygen Flow Rate 0 Narrative Exam Narrative: Pleasant 70-year-old male, resting comfortably in bed, no acute distress. Incision is clean, dry, intact. Bilateral calves are soft, nontender to palpation. Bilateral lower extremity motor functions are grossly intact. Bilateral lower extremity sensation is grossly intact to light touch. Objective Labs Result Diagrams: 12/31/20 06:30 PFSH Medical History Abdominal aortic aneurysm (AAA) Arthritis Chronic back pain GERD (gastroesophageal reflux disease) History of biliary stent insertion HLD (hyperlipidemia) Iliac artery aneurysm, bilateral (01/2018) Kidney stone Surgical History History of cardiac cath History of surgery (1993) History of vasectomy (~1982) Hx of arthroscopy of right knee (2016) Hx of colonoscopy (09/2020) S/P foot surgery, left (1993) Social History household members: spouse Smoking Status: Never smoker alcohol intake: current Discharge Assessment & Plan Assessment and Plan Assessment: Stable status post right total knee arthroplasty Plan of Treatment: -severe postop nausea and vomiting, resolved with Compazine rectal suppository -mobilize with PT.? Weightbearing as tolerated with front wheel walker -aspirin 81 mg twice daily x6 weeks for DVT prophylaxis -pull drain -continue with pain regimen -continue with Flomax x5 days, follow-up PCP if not resolving -possible DC home today when cleared by PT. Discharge Plan Discharge Plan Patient Disposition: Home Discharge orders & Medications Prescriptions: New acetaminophen 500 mg capsule 500 mg PO Q4H MDD Max 6 tabs per day PRN (Reason: Pain) Qty: 90 RF: 0 aspirin 81 mg Tablet,Delayed Release (Dr/Ec) 81 mg PO BID PRN (Reason: X6 weeks to prevent blood clots) Qty: 90 RF: 0 docusate sodium 100 mg Capsule 100 mg PO BID PRN (Reason: Constipation from the narcotic pain meds) Qty: 20 RF: 0 ibuprofen 400 mg Tablet 400 mg PO Q4HR MDD Max 2400 mg per day PRN (Reason: Pain/inflammation) Qty: 90 RF: 0 oxycodone 5 mg Tablet 5 mg PO Q4H PRN (Reason: Pain, Moderate (4-6)) Qty: 42 RF: 0 prochlorperazine 25 mg Suppository 25 mg ND Q6HR PRN (Reason: Nausea) Qty: 10 RF: 0 ondansetron 4 mg Tablet,Disintegrating 4 mg PO Q4HR PRN (Reason: Nausea) Qty: 14 RF: 0 tamsulosin [Flomax] 0.4 mg Capsule 0.4 mg PO DAILY Qty: 7 RF: 0 Continued famotidine 20 mg Tablet 20 mg PO BEDTIME RF: 0 simvastatin 20 mg Tablet 20 mg PO BEDTIME RF: 0 Discontinued aspirin [Aspirin Low-Strength] 81 mg Tablet,Delayed Release (Dr/Ec) 81 mg PO DAILY RF: 0 Medication counseling provided by Pharmacist: Yes Follow up/Referrals: Becca Kennedy MD [Physician] - (10-14 days for postoperative visit) Kelly Luque PA-C [Primary Care Provider] - Diet/Activity/Treatments Diet: Diet as Tolerated and Regular Activity: -weightbearing as tolerated with front wheel walker -continue home exercises as directed by Physical therapy -elevate toes above the nose as needed for swelling Cold/Heat Therapy: -use ice as needed for pain Other treatments: -aspirin 81 mg twice daily x6 weeks to prevent blood clots -Tylenol 500 mg and ibuprofen 400 mg every 4 hours as needed for pain -add oxycodone 5 mg as needed for moderate to severe pain. Use OTC constipation meds as needed with this medication -use Compazine rectal suppositories as needed for severe nausea -use Zofran, (dissolves under tongue) as needed for [id number] nausea -use Flomax x5 days. If still having difficulty with urination, continue with 2 additional days of Flomax and contact PCP Skin/Wound/Dressing Care Report to your healthcare provider any signs of infection, such as:: chills, fever, night sweats, unusual drainage and unusual redness Dressing: -okay to remove the Santana wrap after 48 hours, then you may shower -keep waterproof dressing in place until next visit -call the office if dressing becomes wet, soiled, saturated Visit Report/Discharge Packet Instructions: DI for Knee Replacement, DI for Prescription Opioid Use Stand Alone Forms: Surgery Discharge Discharge Data Primary Care Provider: Kelly Luque Attending Provider: Becca Kennedy VTE Deep Vein Thrombosis/Pulmonary Embolism Present on Admission: No
--- NOTE | 2021-01-01 09:40 | PT.IPTN ---
Current Diagnoses Unilateral primary osteoarthritis, right knee (12/31/20) Surgery Performed Operation Date: 12/30/20 13:45 Actual Procedures p Total Knee Arthroplasty(Right) - Becca Kennedy MD Physical Therapy Treatment Note M2 PT-IP Current Condition Start: 12/31/20 12:51 Freq: NEEDED Status: Discharge Protocol: Document 12/31/20 10:20 AB (Rec: 12/31/20 13:02 AB [id number]) Physical Therapy Current Condition Current Condition Evaluation Date 12/31/20 Treatment Diagnosis s/p R TKA; difficulty in walking Onset Date 12/30/20 Weight Bearing Status Weight Bearing Status Weight Bear as Tolerated Allowed Weight Bearing Amount (enter % RLE WBAT or #) (%) M3 PT-IP Subjective Start: 12/31/20 12:51 Freq: NEEDED Status: Discharge Protocol: Document 01/01/21 09:40 AB (Rec: 01/01/21 12:13 AB [id number]) Subjective Physical Therapy Visit Type Type Treatment Note Visit Start Time 09:40 Visit Stop Time 10:23 Total Visit Minutes 43 Number of LAPPING MACHINE TENDER Visits 0 Physical Therapy Visit Comments Patient Comments pt is agreeable to do PT Therapy Pain Assessment Pain When Pain Assessed At Rest Pain Present Pain Present Pain Reported Location Right Knee Intensity 5 Scale Used Numeric (0 - 10) Pain Management Techniques Apply Cold,Distraction, Elevation,Modification of Treatment,Re-positioning, Timing of Activity with Medications M4 PT-IP Mobility and Gait Start: 12/31/20 12:51 Freq: NEEDED Status: Discharge Protocol: Document 01/01/21 09:40 AB (Rec: 01/01/21 12:13 AB [id number]) PT-Bed Mobility Assessment Supine to Sit Supine to Sit Standby Assistance PT-Transfer Assessment Sit to and From Stand Sit to and from Stand Standby Assistance,1 Person Assistance,Use of Upper Extremities Equipment Transfer Assistive Device Gait Belt,Front Wheeled Walker Orthotic/Prosthetic Devices or Brace: No Transfers Transfer Destination Chair Transfer Technique ambulated using FWW Transfer Ability Level of Assist Standby Assistance,Contact Guard Assistance Comments Mobility Comments pt completed supine to sit SBA . stated that he has more pain today compared to yesterday. completed sit to stand SBA and ambulated in room ~ 40 ft using FWW SBA to CGA. pt ambulated out towards platform step ~ 30 ft using FWW SBA to CGA. completed up/ down platform step using FWW max A and cues. educated spouse on how to assist pt and was able to counterdemonstrate and assist pt with up/down step. pt ambulated back to his room using FWW CGA. pt stated that pain increased and that he is just tired. educated pt and spouse regarding safety and putting resting stations in the house for safety. pt and spouse stated that they are comfortable with the step and that their step at home is not too high and pt may even be able to push FWW over it. educated spouse on how to use safety belt and how to assist pt and completed safely. positioned pt on the chair. ice pack provided. call light and table placed within reach . informed nurse regarding pt 's mobility. Gait Assessment Gait Gait Assistance Required: Standby Assistance,Contact Guard Assist Distance (Feet) 40 Able to Maintain Weight Bearing Status Yes During Gait Assistive Devices Assistive Device Gait Belt,Front Wheeled Walker Orthotic/Prosthetic Devices or Brace: No Gait Deviations General Gait Pattern Antalgic,Decreased Stride Length,Decreased Feet Clearance,Step-to Gait Factors Limiting Gait Function Factors Limiting Gait Function Decreased Activity Tolerance, Decreased Strength,Limited Range of Motion,Pain,Poor Balance,Poor Safety Awareness Stair Climbing Assessment Evaluation Level of Assist On Stairs Maximal Assistance,1 Person Assistance Devices Stair Climbing Assistive Devices Front Wheel Walker Technique/Endurance Stair Climbing Technique Step Over Step,Step to Step Number of Steps Climbed 1 Stair Climbing Set # Repetitions (reps) 2 Comments Stair Climbing Comments pls refer to mobility section for details M5 PT-IP Objective Assessments Start: 12/31/20 12:51 Freq: NEEDED Status: Discharge Protocol: Document 12/31/20 10:20 AB (Rec: 12/31/20 13:02 AB [email or web address]) Orientation Orientation/Cognition Level of Alertness Alert Orientation Name,Place,Situation Safety Awareness Decreased Safety Awareness Gross Range of Motion Lower Extremity ROM Assessment Right Impaired Impairments R knee flexion: ~ 70 deg PROM Strength Lower Extremity Strength Assessment Right Impaired Hip 4-/5 Knee 3+/5 Sensation Assessment Sensation Gross Sensation WNL Muscle Tone Muscle Tone WNL Yes M6 PT-IP Treatment Start: 12/31/20 12:51 Freq: NEEDED Status: Discharge Protocol: Document 01/01/21 09:40 AB (Rec: 01/01/21 12:13 AB [email or web address]) Physical Therapy Treatment Education Education Provided Safety M7 PT-IP Assessment and Plan Start: 12/31/20 12:51 Freq: NEEDED Status: Discharge Protocol: Document 01/01/21 09:40 AB (Rec: 01/01/21 12:13 [id number]) PT Summary Assessment and Plan Potential Rehabilitation Potential Good Summary Impairments Pain,ROM,Strength,Balance, Coordination,Sensation,Tone, Cognition,Bed Mobility, Transfers,Gait,Activity Tolerance Progress Towards Goals Slow Progress due to Pain,Slow Progress due to Activity Tolerance Assessment Summary pt requiring sBA to CGA with ambulation using FWW, max A for up/down platform step but spouse was able to assist pt. pt plans to go home with spouse to assist and is set up for outpt PT. pt may go home when medically stable. Goals Bed Mobility Goal Standby Assistance Transfer Goal Standby Assistance,Front Wheeled Walker Gait Goal Standby Assistance,Front Wheel Walker Gait Distance 200 Other Goals up/down 1 step using FWW SBA Days to Meet Goals 5 Frequency of Treatment Frequency Of Treatment Twice a Day Treatment Plan Physical Therapy Treatment Plan Bed Mobility Training,Transfer Training,Gait Training, Therapeutic Exercise,Balance Retraining,Post Op Education, Discharge Planning,Hot or Cold Pack,Neuromuscular Re-ed, Coordination Retraining,Manual Therapy Precautions Other Precautions RLE WBAT Recommendations To Nursing Amount of Assist Needed 1 Person Assist Discharge Recommendations PT Discharge Recommendations Home with Assistance, Outpatient PT Transportation Needs at Discharge Private Vehicle
--- NOTE | 2021-01-01 10:30 | PC.NURSE ---
Late entry for 929: discontinued hemovac drain. Covered with sterile 4x4 gauze dressing and tegaderm.
--- NOTE | 2021-01-01 11:27 | PC.NURSE ---
Discharge note: IV discontinued. Reviewed all discharge instructions with patient including medications, activity and care of dressing, follow up appts, safety with opiod use, signs and symptoms of infection and reviewed when to call . All belongings with patient, driving. also present during instructions.
--- NOTE | 2021-01-01 12:08 | CM.DPNOTE ---
DC Note DC home w/spouse today, as expected. Patient eager to return home, cleared by therapy team JW
== END 2021-01-01 11:29 | disposition home or self-care (01) ==
LOC: AC 01-01 06:47 → OR 01-01 11:51 → AC 01-01 11:52 → OR 01-01 11:52 → AC 01-01 11:52
PROVIDERS: Admitting Provider Orthopaedic Surgery; PCP Physician Assistant Medical; Referring Provider Orthopaedic Surgery; Visit Provider Orthopaedic Surgery
PROC: 0SRC0JZ Replacement of Right Knee Joint with Synthetic Substitute, Open Approach (ICD-10-PCS; CPT 27447; principal; 2020-12-30 13:45)
DX: M17.11 Unilateral primary osteoarthritis, right knee (principal); E66.9 Obesity, unspecified; K21.9 Gastro-esophageal reflux disease without esophagitis; E78.5 Hyperlipidemia, unspecified; R11.2 Nausea with vomiting, unspecified; Z01.812 Encounter for preprocedural laboratory examination; Z20.822 Contact with and (suspected) exposure to COVID-19
CPT/HCPCS: 27447; 36415; 73560; 85014; 85018; 87635; 94762; 97116; 97162; 97530; C1776; C9803; G0378; A9270; C9290; G0379; J0171; J0690; J2274; J2310; J2405; J2704

== ENCOUNTER → 2022-12-14 17:01 | Outpatient (CLI) | payer MEDICARE, OTHER, SELFPAY ==
[2020-12-30 18:45] VITALS: BMI 36.1
[2022-12-14 18:12] LABS: Uric Acid 7.5 mg/dL (3.5-8.5)
== END ==
PROVIDERS: PCP Physician Assistant Medical; Referring Provider Orthopaedic Surgery Foot and Ankle Surgery; Visit Provider Orthopaedic Surgery Foot and Ankle Surgery
DX: M17.11 Unilateral primary osteoarthritis, right knee (principal)
CPT/HCPCS: 36415; 84550

== ENCOUNTER → 2023-09-07 10:37 | Outpatient (CLI) | payer MEDICARE, OTHER, SELFPAY ==
[2020-12-30 18:45] VITALS: BMI 36.1
--- NOTE | 2023-09-07 | DI.RAD.S_ITS ---
PROCEDURE: FL BARIUM SWALLOW W SPEECH INDICATIONS: Dysphagia COMPARISON: None. TECHNIQUE: Examination was conducted in conjunction with speech pathology per standard protocol. In the lateral projection, filming was performed of the patient swallowing. AP projection filming may also be performed with patient swallowing. COMPARISON: FINDINGS: Function: The oral preparatory phase appears normal, with proper containment. The subsequent oral propulsive phase, pharyngeal phase, and esophageal phase of swallowing also appear normal with all proffered substances. No laryngotracheal penetration or aspiration. No pathologic vallecular pooling. Morphology: No cricopharyngeal bar is identified. No cervical esophageal webs. No Zenker's diverticulum. No strictures. IMPRESSION: No abnormality is seen. Please correlate with speech pathology notes for additional findings. Dictated by: Dejan Cramer M.D. on 09/07/2023 at 17:28 Approved by: Dejan Cramer M.D. on 09/07/2023 at 17:28
--- NOTE | 2023-09-07 14:43 | ST.SWALLOW ---
Visit Care Team Role Provider Type Kelly Luque PA-C Attending Provider Non-Staff Primary Care Provider Referring Provider Specialty: Medical Address: [address] [place], [place] [id number], [place], [address] Email: Modified Barium Swallow Study AGRICULTURE INSTRUCTOR Modified Barium Swallow Study Start: 09/07/23 12:03 Freq: Status: Active Protocol: Document 09/07/23 12:05 LNK (Rec: 09/07/23 14:43 [id number]) Modified Barium Swallow Study Total Time Visit Start Time 11:00 Visit Stop Time 11:40 Total Visit Minutes 40 Referral Referring Physician Kelly Luque [facility] Setting Setting Outpatient Care Patient Information Identification Type Name,Date of Patient History Pt was seen for a Modified Barium Swallow Study at the referral of ROMAIN Small. Pt has a medical history of GERD and is currently being treated by Dr Churchill, a GI specialist in [facility]. Pt c/o difficulty with swallowing, describing a sensation of food/liquids/ pills sticking in his throat, significant pain with swallowing, increased mucous production and, at times, severe coughing for 10-15 minutes. He stated that he feels as though his throat is closing. Pt denied regurgitation of undigested foods. Pt also described his voice as changed. He described his voice as hoarse as though he has a cold. He is scheduled to see Dr. Camargo, ENT in [place] tomorrow morning (). Pt noted that his current sympytoms began in December 2022 after he began steroid shots in his knees. Subjective Observations Pt was seated in the fluoroscopy chair with directions and procedures described for him. He indicated he understood and agreed to proceed. Patient Positioning Position View Lat-A/P Imaging Lateral View Textures Administered Trials Presented Thin Liquid via Spoon (IDDSI 0 ),Thin Liquid via Cup (IDDSI 0 ),Extremely Thick Liquid via Spoon (IDDSI 4),Regular (IDDSI 7) Barium Tablet Yes The IDDSI Framework Protocol: IDDSI.1 Oral Impairment Source: The Modified Barium Swallow Impairment Profile (MBSImP??) Lip Closure No labial escape Tongue Control During Bolus Hold Cohesive bolus between tongue to palatal seal Bolus Preparation/Mastication Timely & efficient chewing & mashing Bolus Transport/Lingual Motion Brisk tongue motion Oral Residue Complete oral clearance Initiation of Pharyngeal Swallow Bolus head at pyriforms Additional Oral Impairment Observations *OME and DKS were observed to be WNL. *Mastication observed with rotary chew pattern. *Good bolus formation, control and AP transition. Pharyngeal Impairment Source: The Modified Barium Swallow Impairment Profile (MBSImP??) Soft Palate Elevation No bolus between soft palate & pharyngeal wall Laryngeal Elevation Part.sup.move.thyroid cart/ part.approx.arytenoids to epiglot.petiole Anterior Hyoid Excursion Partial anterior movement Epiglottic Movement Complete inversion Laryngeal Vestibular Closure Complete; no air/contrast in laryngeal vestibule Pharyngeal Stripping Wave Present - complete Pharyngoesophageal Segment Opening Complete distention & complete duration; no obstruction of flow Tongue Base Retraction Narrow column of contrast/air betwn tongue base & post. pharyngeal wall Pharyngeal Residue Complete pharyngeal clearance Location Valleculae Additional Pharyngeal Impairment *Overall the pt's pharyngeal Observations swallow phase was observed to be WNL. However: *The pt reported greater difficulty with swallowing the extreme liquid trial (barium paste) than with other trial bolus types. *When asked where discomfort/ pain occurred, pt pointed to to the top of the thyroid cartilage. A/P View Textures Administered Trials Presented Thin Liquid via Cup (IDDSI 0) The IDDSI Framework Protocol: IDDSI.1 A/P View Observations Pharyngeal Contraction Complete Esophageal Clearance Upright Position Complete clearance; esophageal coating Vocal Fold Function Good Esophageal Function WFL,Narrowing Additional A-P Observations Thin liquid barium and a barium tablet were observed to clear the esophagus in a timely manner. Clinical Impressions Dysphagia Type WNL Findings Pt's oral, pharyngeal and esophageal swallow phases were observed to be WNL. Pt did report discomfort/pain with barium paste x2 near his larynx. All bolus trials were observed to clear the pharynx and esophagus as expected. This AGRICULTURE INSTRUCTOR questions the possibility of a neurological basis for pts's symptoms. 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 Recommend continued interprofessional evaluation to r/o the aforementioned or other possible diagnoses, including other possible autoimmune diagnoses. Patient Appropriate for Therapy No Recommendations Treatment Plan Additional Recommended Referrals Recommend referrals as indicated
== END ==
PROVIDERS: PCP Physician Assistant Medical; Referring Provider Physician Assistant Medical; Visit Provider Physician Assistant Medical
DX: R13.10 Dysphagia, unspecified (principal)
CPT/HCPCS: 74230; 92611